=== PATIENT | female | born 1935 | race Caucasian/White ===

== ENCOUNTER 2016-06-12 23:16 | Emergency (ER) | payer OTHER ==
[~2016-06-12] VITALS: Ht 157.5 cm; Wt 50.8 kg
--- NOTE | 2016-06-12 23:16 | NUR ---
Dr. Rojas evaluating patient
[2016-06-12] MEDS ORDERED: NACL 0.9% 1,000 ML IV ONE (23:22)
--- NOTE | 2016-06-12 23:34 | NUR ---
81/F [facility]. STATES SHE IS SEEING THINGS SIDEWAYS. HX:ASTHMA,COPD,CAD,ANXIETY. PT DENIES N/V/D; SKIN IS PINK/WARM/DRY; AAOX4 WITH EVEN AND STEADY GAIT; LUNGS CLEAR BL; HR EVEN AND REGULAR; PT DENIES ANY FEVER, CP, SOB, OR COUGH AT THIS TIME; PATIENT STATES PAIN OF 0/10 AT THIS TIME; VSS; PATIENT POSITIONED FOR COMFORT; HOB ELEVATED; BEDRAILS UP X2; BED DOWN. ER MD MADE AWARE OF PT STATUS.
--- NOTE | 2016-06-12 23:34 | NUR ---
SKIN: REDDNESS/TEAR TO SACRUM/BUTTOCKS AREA AND SKIN TEAR TO THE LEFT ELBOW ON ASSESSMENT THERE BEFORE ARRIVING TO TYE
--- NOTE | 2016-06-12 23:34 | NUR ---
PT SUE SAHUS. TAKEN TO BED 4
[2016-06-12 23:35] VITALS: BP 124/72
--- NOTE | 2016-06-12 23:59 | NUR ---
PT LEAVING FOR CT VIA [facility] ACCOMPANIED BY BEHAVIORAL HEALTH TECH
--- NOTE | 2016-06-12 23:59 | NUR ---
PT TAKEN TO CT
[2016-06-13] MEDS ORDERED: ALBUTEROL 0.083% 2.5 MG/3 ML NEBU INH ONE (02:00)
--- NOTE | 2016-06-13 02:15 | NUR ---
RT IS AT BEDSIDE
--- NOTE | 2016-06-13 02:35 | NUR ---
IV removed, catheter intact and site benign. Applied folded 4x4 gauze and tape to stop bleeding.
--- NOTE | 2016-06-13 02:40 | NUR ---
GAVE REPORT TO EMILY AT [facility], TRANSFER OF CARE. [facility] WILL PICKUP PT AND BRING HER BACK TO [facility] WITHIN THE HOUR
[2016-06-13 04:13] VITALS: BP 130/68
--- NOTE | 2016-06-13 04:13 | NUR ---
Patient discharged with v/s stable. Written and verbal after care instructions given and explained. Patient verbalized understanding. Ambulatory with to detention. All questions addressed prior to discharge. Advised to follow up with PMD.
== END 2016-06-13 04:13 | disposition home or self-care (01) ==
LOC: MED 23:16
DX: J44.1 Chronic obstructive pulmonary disease with (acute) exacerbation (principal); J45.909 Unspecified asthma, uncomplicated; Z91.011 Allergy to milk products; Z91.012 Allergy to eggs; Z91.018 Allergy to other foods; Z88.5 Allergy status to narcotic agent
CPT/HCPCS: 36415; 70450; 71010; 80053; 81001; 83605; 83690; 83880; 84484; 85025; 85610; 87040; 87086; 93005; 94640; 94664; 96360; 96361; 99285; J7030; J7613; Q0092

== ENCOUNTER 2017-03-22 08:49 | Inpatient (IN) | payer OTHER ==
[~2017-03-22] VITALS: Ht 154.9 cm; Wt 49.4 kg
--- NOTE | 2017-03-22 08:49 | NUR ---
Patient BIBA [facility], transferred to bed 1. RN evaluating patient at bedside.
[2017-03-22 08:55] VITALS: BP 134/77
--- NOTE | 2017-03-22 09:00 | NUR ---
BIB EMS FROM [facility] WITH C/O C/P X 2 WKS AND SOB HX; CHRONIC RESP FAILURE (ASTHMA), ANXIETY RX; --- DENIES N/V/D; SKIN IS PINK/WARM/DRY; AAOX4; LUNGS EXP WZH BL; HR EVEN AND REGULAR; PT DENIES ANY FEVER, OR COUGH AT THIS TIME; PATIENT STATES PAIN OF 5/10 AT THIS TIME; VSS; PATIENT POSITIONED FOR COMFORT; HOB ELEVATED; BEDRAILS UP X2; BED DOWN. ER MD MADE AWARE OF PT STATUS.
[2017-03-22] MEDS ORDERED: MAGNESIUM SULFATE 50% 1,000 MG in NACL 0.9% 50 ML IV ONE (09:25)
[2017-03-22] MEDS ORDERED: ALBUTEROL 0.083% 2.5 MG/3 ML NEBU INH ONE (09:25)
[2017-03-22] MEDS ORDERED: methylPREDNISolone SS 125 MG/2 ML VIAL IVP ONE (09:25)
[2017-03-22] MEDS ORDERED: MAGNESIUM SULFATE 50% 1000 MG/2 ML VIAL IV ONE (10:00)
[2017-03-22 10:24] LABS: BASOPHILS # (AUTO) 0.1 K/uL (0.00-0.22); EOSINOPHILS # (AUTO) 0.1 K/uL (0-0.4); HEMOGLOBIN 9.1 g/dL (12.0-16.0); LYMPHOCYTES # (AUTO) 1.6 K/uL (2.5-16.5); MONOCYTES # (AUTO) 0.8 K/uL (0.8-1.0); NEUTROPHILS # (AUTO) 5.2 K/uL (1.8-7.7); WHITE BLOOD COUNT (AUTO) 7.8 K/uL (4.8-10.8)
[2017-03-22 10:30] LABS: BASOPHILS % (AUTO) 1.3 % (0.0-2.0); EOSINOPHILS % (AUTO) 1.9 % (0.0-4.0); HEMATOCRIT 29.4 % (36-48); LYMPHOCYTES % (AUTO) 20.5 % (20.5-51.1); MEAN CORPUSCULAR HEMOGLOBIN 27 pg (27-31); MEAN CORPUSCULAR HGB CONC 31 g/dL (33-37); MEAN CORPUSCULAR VOLUME 88 fL (80-94); MONOCYTES % (AUTO) 10.4 % (1.7-9.3); NEUTROPHILS % (AUTO) 65.9 % (42.2-75.2); PLATELET COUNT (AUTO) 264 K/uL (140-450); RED BLOOD CELL COUNT(AUTO) 3.35 MIL/uL (4.20-5.40); RED CELL DISTRIBUTION WIDTH 13.6 % (11.6-13.7)
[2017-03-22 10:53] LABS: ANION GAP 8.4 (8-16); CARBON DIOXIDE 33.6 mmol/L (21-32); CHLORIDE 105 mmol/L (98-107); CREATININE 0.9 mg/dL (0.6-1.3); GLUCOSE 106 mg/dL (74-106); SODIUM SERUM 143 mmol/L (136-145); UREA NITROGEN, BLOOD 19 mg/dL (7-18)
[2017-03-22 10:59] LABS: ALBUMIN 2.9 g/dL (3.4-5.0); ASPARTATE AMINOTRANSFERASE 29 U/L (15-37); LIPASE 193 U/L (73-393); TOTAL BILIRUBIN 0.2 mg/dL (0.0-1.0)
[2017-03-22 11:09] LABS: PROTHROMBIN TIME 10.3 secs (10.8-13.4)
--- NOTE | 2017-03-22 11:40 | NUR ---
PT SLEEPING COMFORTABLY, NO DISTRESS NOTED, DAUGHTER AT BEDSIDE WILL CONTINUE TO MONITOR
[2017-03-22] MEDS ORDERED: diphenhydrAMINE 50 MG/ML VIAL IVP ONE (12:50)
[2017-03-22] MEDS ORDERED: FAMOTIDINE IV ONE (12:50)
[2017-03-22] MEDS ORDERED: NACL 0.9% IV ONE (12:50)
[2017-03-22] MEDS ORDERED: FAMOTIDINE 20 MG/2 ML VIAL ONE (13:02)
[2017-03-22] MEDS ORDERED: NACL 0.9% 1,000 ML IV SCH (14:43)
[2017-03-22] MEDS ORDERED: ONDANSETRON 4 MG/2 ML VIAL IVP PRN (14:45)
--- NOTE | 2017-03-22 16:05 | NUR ---
Patient will be admitted to care of DR. GRAYSON. Admited to TELE. Will go to [id number]. Belongings list completed. Report to NATALIA SEPULVEDA.
[2017-03-22 17:15] VITALS: BP 124/84
--- NOTE | 2017-03-22 17:15 | NUR ---
Admitted from ER, with chief complaint of CHEST PAIN/SOB , 81 y/o ,Female, Cooperative, A/OX4, NO S/S OF ACUTE DISTRESS, PT DENIES PAIN, IV SITE PATENT AND INTACT, BRUISES NOTED TO UPPER EXT, EDEMA NOTED TO LOWER EXT, TELE BOX IN PLACE, SAFETY PRECAUTIONS TAKEN, CALL LIGHT WITHIN REACH, PT oriented to call light, bed, phone,television, bathroom, smoking policy, visiting hours, procedures, ID bracelet on. Belongings list checked, WILL CONT TO MONITOR.
[2017-03-22] MEDS ORDERED: ALBUTEROL SULFATE/IPRATROPIU 3 ML SOL IH PRN (17:25)
[2017-03-22] MEDS ORDERED: KETOROLAC 30 MG/ML VIAL IVP ONE (18:00)
[2017-03-22] MEDS: ALBUTEROL SULFATE/IPRATROPIU 3 ML SOL IH SCH (18:00)
--- NOTE | 2017-03-22 19:16 | NUR ---
ENDORSED CARE TO NIGHT RN, PT IN STABLE CONDITION.
--- NOTE | 2017-03-22 19:17 | NUR ---
RECEIVED HANDOFF REPORT FROM AM RN. PATIENT A&OX4. IV SITE PATENT AND INTACT. PATIENT ON 2L O2 VIA NC. PATIENT REQUESTED BREATHING TREATMENT, CALL RT ORDERED. PATIENT STATES SOB. RESPIRATIONS NON LABORED, SYMMETRICAL, RR 16. PATIENT DENIES PAIN. PATIENT STATES HUNGER, WILL PROVIDE FOOD ORDERED DIET. SAFETY MEASURES ENSURED. FAMILY AT BEDSIDE. WILL CONTINUE TO MONITOR.
[2017-03-22 20:00] VITALS: BP 154/81
[2017-03-22] MEDS ORDERED: BISA-213 RC (20:53)
[2017-03-22] MEDS ORDERED: SODI45SP10 NS (20:53)
[2017-03-22] MEDS ORDERED: DOCU-299 PO (20:53)
[2017-03-22] MEDS ORDERED: FLEPED RC (20:53)
[2017-03-22] MEDS ORDERED: LID5T TP (20:53)
[2017-03-22] MEDS ORDERED: PRON INH (20:53)
[2017-03-22] MEDS ORDERED: PRED10TA6 PO (20:53)
[2017-03-22] MEDS ORDERED: MULT15LI1 GT (20:53)
[2017-03-22] MEDS ORDERED: MAGN400S60 PO (20:53)
[2017-03-22] MEDS ORDERED: DEXT1DRO4 OP (20:53)
[2017-03-22] MEDS ORDERED: LIDOCAINE 5% 1 EA PATCH TP SCH (20:55)
[2017-03-22] MEDS: DOCUSATE SODIUM 100 MG GELCAP PO SCH (21:00)
[2017-03-22] MEDS: SODIUM CHLORIDE 0.65% 45 ML BTL NS SCH (21:00)
[2017-03-22] MEDS ORDERED: DOCUSATE SODIUM 100 MG GELCAP PO SCH (21:00)
[2017-03-22] MEDS ORDERED: NON-FORMULARY ITEM (Dextran 70/Hypromellose (Artificial Tears) 1 EACH) OP SCH (21:00)
[2017-03-22] MEDS ORDERED: NITROGLYCERIN 0.4 MG TAB SL PRN (21:30)
--- NOTE | 2017-03-22 21:45 | NUR ---
PATIENT STATES WANTING TO SIT IN A CHAIR AND TO ALSO USE THE TOILET. GOT PATIENT UP ON A BEDSIDE COMMODE, PATIENT TOLERATED MOVEMENT WELL. NO SIGNS OR SYMPTOMS OF ACUTE DISTRESS NOTED. CRANBERRY GROWER AT BEDSIDE. WILL CONTINUE TO MONITOR.
[2017-03-22 22:28] LABS: FREE T4 (FREE THYROXINE) 1.03 ng/dL (0.76-1.46); MAGNESIUM 2.4 mg/dL (1.8-2.4); PHOSPHORUS 3.9 mg/dL (2.5-4.9); THYROID STIMULATING HORMONE 1.65 uIU/mL (0.34-3.74)
[2017-03-23] VITALS: BP 123/53
--- NOTE | 2017-03-23 01:45 | NUR ---
PATIENT AWAKE AND ALERT IN BED. PATIENT DENIES PAIN. PATIENT DENIES SOB. NO SIGNS OR SYMPTOMS OF ACUTE DISTRESS NOTED. CALL LIGHT WITHIN REACH. WILL CONTINUE TO MONITOR.
[2017-03-23 04:00] VITALS: BP 148/60
--- NOTE | 2017-03-23 06:52 | NUR ---
PATIENT HAS BEEN SCREENED AND CATEGORIZED HIGH NUTRITION RISK. PATIENT WILL BE SEEN WITHIN 1-2 DAYS OF ADMISSION. 03/23/17-03/24/17 THOMPSON JEFFERS MS, RDN
[2017-03-23] MEDS: ALBUTEROL SULFATE/IPRATROPIU 3 ML SOL IH SCH ×2 (06:57→13:11)
--- NOTE | 2017-03-23 07:25 | NUR ---
ENDORSED PLAN OF CARE TO AM RN. PATIENT IN STABLE CONDITION. NO SIGNS OR SYMPTOMS OF ACUTE DISTRESS NOTED. CALL LIGHT WITHIN REACH. SAFETY MEASURES ENSURED.
--- NOTE | 2017-03-23 07:25 | NUR ---
RECEIVED REPORT FROM NIGHT RN, PT A/OX4, PLAN OF CARE DISCUSSED WITH PT, PT VERBALIZED UNDERSTANDING, PT DENIES PAIN, NO S/S OF ACUTE DISTRESS, EDEMA NOTED IN BLE, PT ON 2L O2 VIA NC, IV PATENT AND INTACT, SAFETY PRECAUTIONS TAKEN, CALL LIGHT WITHIN REACH, WILL CONT TO MONITOR.
[2017-03-23 08:07] LABS: BASOPHILS % (AUTO) 0.2 % (0.0-2.0); HEMATOCRIT 27.4 % (36-48); HEMOGLOBIN 8.2 g/dL (12.0-16.0); LYMPHOCYTES # (AUTO) 0.8 K/uL (2.5-16.5); LYMPHOCYTES % (AUTO) 13.1 % (20.5-51.1); MEAN CORPUSCULAR HEMOGLOBIN 26 pg (27-31); MEAN CORPUSCULAR HGB CONC 30 g/dL (33-37); MEAN CORPUSCULAR VOLUME 87 fL (80-94); MONOCYTES # (AUTO) 0.7 K/uL (0.8-1.0); MONOCYTES % (AUTO) 11.7 % (1.7-9.3); NEUTROPHILS # (AUTO) 4.9 K/uL (1.8-7.7); PLATELET COUNT (AUTO) 272 K/uL (140-450); RED BLOOD CELL COUNT(AUTO) 3.15 MIL/uL (4.20-5.40); RED CELL DISTRIBUTION WIDTH 13.2 % (11.6-13.7); WHITE BLOOD COUNT (AUTO) 6.4 K/uL (4.8-10.8)
[2017-03-23 08:25] LABS: ANION GAP 7.2 (8-16); CARBON DIOXIDE 33.9 mmol/L (21-32); CHLORIDE 106 mmol/L (98-107); CREATININE 0.9 mg/dL (0.6-1.3); GLUCOSE 86 mg/dL (74-106); POTASSIUM 4.1 mmol/L (3.5-5.1); SODIUM SERUM 143 mmol/L (136-145); UREA NITROGEN, BLOOD 23 mg/dL (7-18)
[2017-03-23 08:27] VITALS: BP 138/57
[2017-03-23 08:30] LABS: MAGNESIUM 2.5 mg/dL (1.8-2.4); PHOSPHORUS 3.4 mg/dL (2.5-4.9)
[2017-03-23] MEDS: DOCUSATE SODIUM 100 MG GELCAP PO SCH ×2 (09:00→21:00)
[2017-03-23] MEDS: predniSONE 5 MG TAB PO SCH (09:00)
[2017-03-23] MEDS: SODIUM CHLORIDE 0.65% 45 ML BTL NS SCH ×2 (09:00→21:00)
[2017-03-23] MEDS: MULTIVITAMIN 1 TAB PO SCH (09:27)
[2017-03-23] MEDS: LISINOPRIL 5 MG TAB PO SCH (09:27)
[2017-03-23] MEDS: ASPIRIN 81 MG TAB.CHEW PO SCH (09:27)
[2017-03-23] MEDS: METOPROLOL 25 MG TAB PO SCH ×2 (09:28→21:09)
--- NOTE | 2017-03-23 10:13 | NUR ---
DUE MEDICATIONS GIVEN WITH EDUCATION, PT VERBALIZED UNDERSTANDING, PT TOLERATED WELL, WILL CONT TO MONITOR.
[2017-03-23 11:58] VITALS: BP 137/60
[2017-03-23] MEDS: POLYVINYL ALCOHOL 1.4% OP 15 ML SOL OP SCH ×3 (13:00→21:10)
--- NOTE | 2017-03-23 14:30 | NUR ---
PT LYING IN BED ON 2LO2 VIA NC, DAUGHTER AT BEDSIDE, DAUGHTER AND PT UPDATED ABOUT PLAN OF CARE, PT DENIES PAIN, NO S/S OF ACUTE DISTRESS, CALL LIGHT WITHIN REACH, WILL CONT TO MONITOR.
[2017-03-23 16:00] VITALS: BP 142/88
[2017-03-23] MEDS: ACETAMINOPHEN 325 MG TAB PO PRN ×2 (16:03→22:11)
--- NOTE | 2017-03-23 16:15 | NUR ---
PT IN BED IN MODERATE DISTRESS, PT REPORTS 6/10 PAIN, PT WILL BE MEDICATED ORDERED, WILL CONT TO MONITOR.
[2017-03-23] MEDS ORDERED: guaiFENesin DM 200/20 MG-10 ML 10 ML UDC PO PRN (16:40)
--- NOTE | 2017-03-23 19:02 | NUR ---
ENDORSED PLAN OF CARE TO NIGHT RN, PT IN STABLE CONDITION.
--- NOTE | 2017-03-23 19:03 | NUR ---
RECEIVED HANDOFF REPORT FROM AM RN. PATIENT A&OX4. PATIENT RESTING IN BED. PATIENT DENIES PAIN. PATIENT STATES SHORTNESS OF BREATH, RT ALREADY AT BEDSIDE. PATIENT ON 2L O2 VIA NC. IV SITE PATENT AND INTACT. SAFETY MEASURES ENSURED. CALL LIGHT WITHIN REACH. WILL CONTINUE TO MONITOR.
[2017-03-23] MEDS: ALBUTEROL 0.083% 2.5 MG/3 ML NEBU INH SCH (19:08)
[2017-03-23 20:00] VITALS: BP 140/89
[2017-03-23] MEDS: ATORVASTATIN 20 MG TAB PO SCH (21:09)
--- NOTE | 2017-03-23 21:18 | NUR ---
PM MEDS GIVEN WITH EDUCATION. PATIENT VERBALIZED UNDERSTANDING. NO SIGNS OR SYMPTOMS OF ACUTE DISTRESS NOTED. CALL LIGHT WITHIN REACH. WILL CONTINUE TO MONITOR.
[2017-03-23] MEDS ORDERED: LORazepam 0.5 MG TAB PO PRN (22:10)
[2017-03-23] MEDS ORDERED: MORPHINE SULFATE 2 MG/ML SYR IVP PRN (22:10)
[2017-03-24] VITALS: BP 124/61
[2017-03-24] MEDS ORDERED: KETOROLAC 30 MG/ML VIAL IVP SCH
--- NOTE | 2017-03-24 00:07 | NUR ---
PATIENT STATED PAIN 11/04. PREVIOUSLY MEDICATED BUT HAS BREAK THROUGH PAIN. MD AWARE. WILL MEDICATE NEWLY ORDERED. PATIENT DENIES SOB. PATIENT DENIES CHEST PAIN. NO SIGNS OR SYMPTOMS OF ACUTE DISTRESS NOTED. CALL LIGHT WITHIN REACH. WILL CONTINUE TO MONITOR.
[2017-03-24] MEDS ORDERED: ZOLPIDEM 5 MG TAB PO PRN (02:50)
[2017-03-24] MEDS: ALBUTEROL 0.083% 2.5 MG/3 ML NEBU INH PRN ×2 (03:30→08:36)
--- NOTE | 2017-03-24 03:30 | NUR ---
HHN TX GIVEN. PER PT SHE IS SOB. DR PIEDRA AT BEDSIDE. NO SOB OR DISTRESS NOTED. TURNED OFF O2 PER ORDERS . SPO2 ON RA 94%. WILL CONTINUE TO MONITOR. NATALIA SANTANA AWARE.
[2017-03-24 04:00] VITALS: BP 114/59
--- NOTE | 2017-03-24 04:09 | NUR ---
PATIENT RESTING IN BED. PATIENT STATES FEELING COLD AND REQUESTED ANOTHER BLANKET, WHICH WILL BE PROVIDED. PATIENT STATES PAIN BUT DENIES PAIN MEDICATION. NO SIGNS OR SYMPTOMS OF ACUTE DISTRESS NOTED. CALL LIGHT WITHIN REACH. WILL CONTINUE TO MONITOR.
[2017-03-24] MEDS: ALBUTEROL 0.083% 2.5 MG/3 ML NEBU INH SCH (06:00)
[2017-03-24] MEDS ORDERED: ALENDRONATE SODIUM 70 MG TAB PO SCH (06:30)
--- NOTE | 2017-03-24 06:50 | NUR ---
PT SLEEPING NO SIGNS OF DISTRES NOTED AT THIS TIME NO HHN GIVEN
[2017-03-24 06:52] LABS: BASOPHILS # (AUTO) 0.2 K/uL (0.00-0.22); BASOPHILS % (AUTO) 2.1 % (0.0-2.0); EOSINOPHILS # (AUTO) 0.3 K/uL (0-0.4); EOSINOPHILS % (AUTO) 3.7 % (0.0-4.0); HEMATOCRIT 27.1 % (36-48); HEMOGLOBIN 8.5 g/dL (12.0-16.0); LYMPHOCYTES # (AUTO) 1.7 K/uL (2.5-16.5); LYMPHOCYTES % (AUTO) 23.3 % (20.5-51.1); MEAN CORPUSCULAR HEMOGLOBIN 28 pg (27-31); MEAN CORPUSCULAR HGB CONC 31 g/dL (33-37); MEAN CORPUSCULAR VOLUME 88 fL (80-94); MONOCYTES # (AUTO) 0.7 K/uL (0.8-1.0); MONOCYTES % (AUTO) 9.3 % (1.7-9.3); NEUTROPHILS # (AUTO) 4.6 K/uL (1.8-7.7); NEUTROPHILS % (AUTO) 61.6 % (42.2-75.2); PLATELET COUNT (AUTO) 257 K/uL (140-450); RED BLOOD CELL COUNT(AUTO) 3.08 MIL/uL (4.20-5.40); RED CELL DISTRIBUTION WIDTH 13.3 % (11.6-13.7); WHITE BLOOD COUNT (AUTO) 7.5 K/uL (4.8-10.8)
[2017-03-24 07:27] LABS: ANION GAP 6.5 (8-16); CARBON DIOXIDE 33.3 mmol/L (21-32); CHLORIDE 106 mmol/L (98-107); GLUCOSE 99 mg/dL (74-106); MAGNESIUM 2.3 mg/dL (1.8-2.4); PHOSPHORUS 3.3 mg/dL (2.5-4.9); POTASSIUM 3.8 mmol/L (3.5-5.1); SODIUM SERUM 142 mmol/L (136-145); UREA NITROGEN, BLOOD 27 mg/dL (7-18)
[2017-03-24 07:38] VITALS: BP 137/55
--- NOTE | 2017-03-24 07:40 | NUR ---
ENDORSED PLAN OF CARE TO AM RN. PATIENT IN STABLE CONDITION. NO SIGNS OR SYMPTOMS OF ACUTE DISTRESS NOTED. SAFETY MEASURES ENSURED.
--- NOTE | 2017-03-24 07:42 | NUR ---
RECEIVED REPORT FROM NIGHT RN. PT RESTING IN BED. AAOX4. NO S/S OF ACUTE DISTRESS. PT DENIES PAIN. IV SITE PATENT AND INTACT. ON O2 1L NC. TELE BOX IN PLACE. CALL LIGHT WITHIN REACH. SAFETY MEASURES ENSURED. WILL CONTINUE TO MONITOR.
[2017-03-24] MEDS: MULTIVITAMIN 1 TAB PO SCH (08:22)
[2017-03-24] MEDS: LISINOPRIL 5 MG TAB PO SCH (08:23)
[2017-03-24] MEDS: SODIUM CHLORIDE 0.65% 45 ML BTL NS SCH ×2 (08:24→21:00)
[2017-03-24] MEDS: ASPIRIN 81 MG TAB.CHEW PO SCH (08:25)
[2017-03-24] MEDS: METOPROLOL 25 MG TAB PO SCH ×2 (08:25→21:35)
[2017-03-24] MEDS: predniSONE 5 MG TAB PO SCH (08:25)
[2017-03-24] MEDS: POLYVINYL ALCOHOL 1.4% OP 15 ML SOL OP SCH ×4 (08:25→21:55)
--- NOTE | 2017-03-24 08:26 | NUR ---
PATIENT REFUSED ALL MORNING MEDS STATING I USED TO ONLY TAKE ALBUTEROL AND I WAS FINE. "I DONT WANT TO TAKE NOTHING" RT NOTIFIED THAT PT WANTS BREATHING TREATMENT. NO S/S OF ACUTE DISTRESS. WILL CONTINUE TO MONITOR.
[2017-03-24] MEDS: DOCUSATE SODIUM 100 MG GELCAP PO SCH ×2 (08:27→21:00)
[2017-03-24] MEDS ORDERED: SODIUM PHOSPHATE PEDIATRIC 67.5 ML ENEM RC SCH (09:00)
[2017-03-24] MEDS ORDERED: MAGNESIUM HYDROXIDE 2400 MG/30 ML UDC PO SCH (09:00)
[2017-03-24] MEDS ORDERED: BISACODYL 10 MG SUPP RC SCH (09:00)
--- NOTE | 2017-03-24 10:49 | NUR ---
ACCOUNTING MANAGER CPA note (bedside swallow evaluation completed) [id number]. Bedside swallow evaluation completed, please see report for details. ACCOUNTING MANAGER CPA provided pt with education regarding purpose of evaluation and rationale for recommendations. Pt verbalized understanding and agreement at this time. No family/caregivers present at this time. Recommend: 1) pureed textures (due to pt's lack of dentition and per pt's preference) 2) thin liquids 3) general aspiration precautions (including pt's must be fully awake/alert/upright for any PO intakes) 4) no further ACCOUNTING MANAGER CPA intervention indicated at this time. Physician may reorder if further concerns arise, as appropriate. G-codes: [id number] [facility] NOMS level 4. PVE for d/w RN (Rahul) prior to and following bedside swallow evaluation completion.
[2017-03-24] MEDS ORDERED: ALBUTEROL 0.083% 2.5 MG/3 ML NEBU INH PRN (11:20)
[2017-03-24] MEDS ORDERED: SODIUM PHOSPHATE 118 ML ENEM RC PRN (11:50)
[2017-03-24] MEDS ORDERED: SODIUM PHOSPHATE 118 ML ENEM RC SCH (11:50)
[2017-03-24 12:00] VITALS: BP 136/63
[2017-03-24] MEDS ORDERED: ALBUTEROL 0.083% 2.5 MG/3 ML NEBU INH SCH (12:00)
--- NOTE | 2017-03-24 12:12 | NUR ---
PT RESTING IN BED. NO S/S OF ACUTE DISTRESS. PT DENIES PAIN. WILL CONTINUE TO MONITOR.
--- NOTE | 2017-03-24 14:19 | NUR ---
03/24/17 RD INITIAL ASSESSMENT COMPLETED PLEASE REFER TO NUTRITION ASSESSMENT UNDER CARE ACTIVITY FOR ESTIMATED NUTRITIONAL NEEDS. 1. CONTINUE PUREE DIET TOLERATED PER MD --NOTE PT MEETING >95% OF ESTIMATED KCAL AND PROTEIN NEEDS 2. RD TO FOLLOW-UP 3-5 DAYS, MODERATE RISK FEDERICO MARRUFO, RD
[2017-03-24] MEDS ORDERED: LORazepam 0.5 MG TAB PO PRN (15:10)
[2017-03-24] MEDS: ACETAMINOPHEN 325 MG TAB PO PRN (15:58)
--- NOTE | 2017-03-24 15:59 | NUR ---
PT RESTING IN BED. NO S/S OF ACUTE DISTRESS. PT STATES SHE HAS PAIN. MEDICATED ORDERED. WILL CONTINUE TO MONITOR.
[2017-03-24 16:00] VITALS: BP 140/58
[2017-03-24] MEDS ORDERED: ALBUTEROL SULFATE/IPRATROPIU 3 ML SOL IH PRN (16:00)
[2017-03-24] MEDS ORDERED: PANTOPRAZOLE 40 MG TABEC PO SCH (16:30)
--- NOTE | 2017-03-24 19:14 | NUR ---
ENDORSED PLAN OF CARE TO NIGHT RN. PT REMAINS STABLE.
--- NOTE | 2017-03-24 19:20 | NUR ---
RECEIVED REPORT FROM AM NURSE. PT IS AAOX4. ON 02 2L NC. NO SIGNS OF ACUTE DISTRESS NOTED. RESPIRATIONS EVEN AND UNLABORED. SKIN COLOR APPROPRIATE TO ETHNICITY. IV ACCESS INTACT AND PATENT, SL. TELE MONITOR IN PLACE. PLAN OF CARE DISCUSSED, PT VERBALIZED UNDERSTANDING. BED IN LOW POSITION, BILATERAL HALF SIDE RAILS UP, CALL LIGHT WITHIN REACH, WILL CONTINUE TO MONITOR.
[2017-03-24 20:00] VITALS: BP 138/57
[2017-03-24] MEDS: ATORVASTATIN 20 MG TAB PO SCH (21:36)
--- NOTE | 2017-03-24 21:37 | NUR ---
PT REFUSED COLACE MEDICATION. BENEFITS AND RISKS EXPLAINED, PT VERBALIZED UNDERSTANDING. PT STILL REFUSED MEDICATION.
[2017-03-25] VITALS: BP 146/62
[2017-03-25 04:00] VITALS: BP 123/76
[2017-03-25] MEDS: ACETAMINOPHEN 325 MG TAB PO PRN ×2 (04:02→16:41)
--- NOTE | 2017-03-25 04:15 | NUR ---
PT IS REQUESTING BREATHING TREATMENT. O2 SATURATION IS 98. CALLED RT AND REQUESTED FOR THEM TO COME GIVE PT A BREATHING TREATMENT PER HER REQUEST. BREATHING TREATMENTS ARE PRN. PT IS SHOWING NO SIGNS OF ACUTE DISTRESS, RESPIRATIONS EVEN AND UNLABORED. O2 SAT 98. WILL CONTINUE TO MONITOR.
--- NOTE | 2017-03-25 06:06 | NUR ---
PT IS REQUESTING BREATHING TX. CALLED RT, BUT THEY ARE UNABLE TO GIVE HER BREATHING TX AT THIS TIME, BREATHING TX ARE PRN AND PT IS NOT IN RESPIRATORY DISTRESS. NO SIGNS OF ACUTE DISTRESS NOTED. RESPIRATIONS EVEN AND UNLABORED. O2 SATURATION IS 100%. EXPLAINED TO PT, SHE IS NOT IN ANY RESPIRATORY DISTRESS, AND 02 SAT IS NORMAL. WILL CONTINUE TO MONITOR.
[2017-03-25] MEDS: ALBUTEROL 0.083% 2.5 MG/3 ML NEBU INH PRN ×4 (07:06→19:40)
--- NOTE | 2017-03-25 07:20 | NUR ---
RECEIVED REPORT FROM SOFTWARE PROJECT MANAGER RN. PATIENT IS AAOX4, HAS NASAL CANNULA 2L IN PLACE, RESPIRATORY EFFORT EVEN AND UNLABORED. NO OTHER SIGNS AND SYMPTOMS OF DISTRESS NOTED AT THIS TIME. PATIENT HAS SKIN TEARS ON BOTH LOWER LEGS, AND SKIN TEAR ON LEFT ARM. HAS IV 2OG TO LEFT FA ON SALINE LOCK. DISCUSSED PLAN OF CARE WITH PATIENT, SHE VERBALIZED UNDERSTANDING. BED IN LOWEST POSITION, SIDERAILS UP X2, CALL LIGHT PLACED WITHIN REACH. WILL CONTINUE TO MONITOR.
--- NOTE | 2017-03-25 07:20 | NUR ---
ENDORSED PT TO AM NURSE FOR CONTINUITY OF CARE. PT IS IN STABLE CONDITION.
[2017-03-25 08:00] VITALS: BP 150/78
[2017-03-25] MEDS ORDERED: PANTOPRAZOLE 40 MG TABEC PO SCH (08:00)
--- NOTE | 2017-03-25 08:40 | NUR ---
PATIENT REFUSED HER MORNING MEDICATION STATING "STATING THAT SHE DIDN'T TAKE MOST OF THOSE MEDICATIONS BEFORE SHE CAME HERE. I WANT TO GO BACK TO THE FACILITY I CAME FROM". DR NEW AT THE BEDSIDE, EXPLAINED TO THE PATIENT THAT SHE CAME FOR COMPLAINT OF CHEST PAIN AND IT IS PROTOCOL TO HAVE HER ON THE MEDICATIONS, BUT THAT SHE CAN DC THE BLOOD PRESSURE MEDICATIONS. ALSO THAT SHE WILL CONTACT CM TO HAVE THEM WORK ON TRANSFERRING HER BACK TO THE FACILITY THAT SHE CAME FROM. PATIENT ONLY ACCEPTED TO HAVE ARTIFICIAL TEARS PUT IN HER EYES. WILL CONTINUE TO MONITOR.
[2017-03-25] MEDS: POLYVINYL ALCOHOL 1.4% OP 15 ML SOL OP SCH ×3 (08:46→17:00)
[2017-03-25] MEDS: DOCUSATE SODIUM 100 MG GELCAP PO SCH (08:55)
[2017-03-25] MEDS: predniSONE 5 MG TAB PO SCH (08:55)
[2017-03-25] MEDS: ASPIRIN 81 MG TAB.CHEW PO SCH (08:55)
[2017-03-25] MEDS: SODIUM CHLORIDE 0.65% 45 ML BTL NS SCH (08:55)
[2017-03-25] MEDS: LISINOPRIL 5 MG TAB PO SCH (08:56)
[2017-03-25] MEDS: MULTIVITAMIN 1 TAB PO SCH (08:56)
[2017-03-25] MEDS: METOPROLOL 25 MG TAB PO SCH (08:56)
[2017-03-25 09:32] LABS: BASOPHILS # (AUTO) 0.2 K/uL (0.00-0.22); BASOPHILS % (AUTO) 2.5 % (0.0-2.0); EOSINOPHILS # (AUTO) 0.3 K/uL (0-0.4); HEMATOCRIT 29.2 % (36-48); HEMOGLOBIN 9.2 g/dL (12.0-16.0); LYMPHOCYTES # (AUTO) 1.8 K/uL (2.5-16.5); LYMPHOCYTES % (AUTO) 24.1 % (20.5-51.1); MEAN CORPUSCULAR HEMOGLOBIN 27 pg (27-31); MEAN CORPUSCULAR HGB CONC 32 g/dL (33-37); MEAN CORPUSCULAR VOLUME 86 fL (80-94); MONOCYTES # (AUTO) 0.6 K/uL (0.8-1.0); NEUTROPHILS # (AUTO) 4.5 K/uL (1.8-7.7); NEUTROPHILS % (AUTO) 61.4 % (42.2-75.2); PLATELET COUNT (AUTO) 265 K/uL (140-450); RED BLOOD CELL COUNT(AUTO) 3.39 MIL/uL (4.20-5.40); RED CELL DISTRIBUTION WIDTH 13.1 % (11.6-13.7); WHITE BLOOD COUNT (AUTO) 7.4 K/uL (4.8-10.8)
[2017-03-25 09:41] LABS: CREATININE 0.9 mg/dL (0.6-1.3); GLUCOSE 134 mg/dL (74-106); UREA NITROGEN, BLOOD 21 mg/dL (7-18)
[2017-03-25 09:45] LABS: MAGNESIUM 2.2 mg/dL (1.8-2.4); PHOSPHORUS 3.2 mg/dL (2.5-4.9)
[2017-03-25 09:56] LABS: ANION GAP 4.1 (8-16); CARBON DIOXIDE 34.8 mmol/L (21-32); CHLORIDE 106 mmol/L (98-107); POTASSIUM 3.9 mmol/L (3.5-5.1); SODIUM SERUM 141 mmol/L (136-145)
--- NOTE | 2017-03-25 11:11 | NUR ---
PATIENT REQUESTED BREATHING TREATMENT. RT NOTIFIED.
[2017-03-25 12:00] VITALS: BP 147/60
--- NOTE | 2017-03-25 12:19 | NUR ---
SPOKE WITH BHARAT FROM [facility]. THE PATIENT CAN GO BACK TO [facility] ROOM [address] UNDER DR[address] KAREEM SHARMA. FAXED INQUIRY. PATIENT TO GO ON RNA PROGRAM.
[2017-03-25] MEDS ORDERED: PANT40EC28 PO (13:05)
--- NOTE | 2017-03-25 13:22 | NUR ---
CALLED PATIENTS DAUGHTER AND LEFT A MESSAGE INFORMING HER OF PATIENTS TRANSFER. STILL UNSURE OF WHAT TIME THE TRANSFER WILL BE. WILL CONTINUE TO MONITOR PATIENT.
--- NOTE | 2017-03-25 14:06 | NUR ---
SPOKE WITH ANGELA FROM [facility]. AUTH FOR KATHERINE IS [id number]. I CALLED . [facility] TRANSPORT WILL BE AT 6:30P.Howard HEWITT RN CHARGE NURSE AWARE.
[2017-03-25 16:00] VITALS: BP 159/76
--- NOTE | 2017-03-25 17:01 | NUR ---
CALLED [facility] AND GAVE REPORT TO IVONNE.
--- NOTE | 2017-03-25 19:15 | NUR ---
ENDORSED PATIENT TO REHABILITATION CONSULTANT RN FOR CONTINUITY OF CARE. PATIENT IN STABLE CONDITION.
--- NOTE | 2017-03-25 20:00 | NUR ---
PT WAS DISCHARGED. PICKED UP BY [facility]. IV ACCESS, TELE MONITOR, WRIST BANDS REMOVED. PT IS IN STABLE CONDITION. NO SIGNS OF ACUTE DISTRESS NOTED.
== END 2017-03-25 20:20 | disposition home or self-care (01) | DRG 542 ==
LOC: MED 08:49 → MTU 14:43
PROVIDERS: ADMIT Family Medicine; ATTEND Family Medicine
DX: M80.88XA Other osteoporosis with current pathological fracture, vertebra(e), initial encounter for fracture (principal); N17.0 Acute kidney failure with tubular necrosis; J96.21 Acute and chronic respiratory failure with hypoxia; I50.33 Acute on chronic diastolic (congestive) heart failure; E44.0 Moderate protein-calorie malnutrition; E83.41 Hypermagnesemia; M41.9 Scoliosis, unspecified; J44.1 Chronic obstructive pulmonary disease with (acute) exacerbation; M94.0 Chondrocostal junction syndrome [Tietze]; M47.896 Other spondylosis, lumbar region; M51.26 Other intervertebral disc displacement, lumbar region; D64.9 Anemia, unspecified; J45.909 Unspecified asthma, uncomplicated; E11.9 Type 2 diabetes mellitus without complications; E78.5 Hyperlipidemia, unspecified; M19.90 Unspecified osteoarthritis, unspecified site; Z88.6 Allergy status to analgesic agent; Z88.1 Allergy status to other antibiotic agents; Z91.012 Allergy to eggs; Z91.011 Allergy to milk products; Z91.018 Allergy to other foods; Z91.010 Allergy to peanuts; Z68.20 Body mass index [BMI] 20.0-20.9, adult; Z90.49 Acquired absence of other specified parts of digestive tract; Z83.3 Family history of diabetes mellitus; Z82.49 Family history of ischemic heart disease and other diseases of the circulatory system; Z83.49 Family history of other endocrine, nutritional and metabolic diseases; Z79.52 Long term (current) use of systemic steroids; N18.9 Chronic kidney disease, unspecified
CPT/HCPCS: 36415; 71010; 71275; 80048; 80053; 82150; 82948; 83036; 83690; 83735; 83880; 84100; 84439; 84443; 84484; 85025; 85379; 85610; 85730; 87081; 92610; 93005; 93970; 94640; 96365; 96367; 96375; 97799; 99285; J1200; J1885; J2930; J3475; J3490; J7030; J7512; J7613; J7620; Q0092; Q9967